=== PATIENT | female | born 1985 | race African-American/Black ===

== ENCOUNTER 2018-03-16 15:16 | Emergency (ER) | payer OTHER ==
--- NOTE | 2018-03-16 19:58 | ER Document Report ---
ED Medical Screen (RME) - General Chief Complaint: Chest Pain Stated Complaint: CHEST DISCOMFORT, ARM/LEG NUMBNESS Time Seen by Provider: 03/16/18 19:50 Notes: 32-year-old female with a complaint of a discomfort in her chest in the center, intermittently since yesterday. States she is getting over an upper respiratory infection, just had a chest x-ray which was negative, was prescribed blood pressure medication and an antibiotic yesterday at primary care, has not started either yet. Just stop smoking. Denies any current symptoms including any current pain. States that she felt "weird on one side of the body" earlier today, denies focal numbness or weakness. Denies shortness of breath, nausea/vomiting, fever. Denies recreational drugs. TRAVEL OUTSIDE OF THE [place] IN LAST 30 DAYS: No - Related Data Allergies/Adverse Reactions: No Known Allergies Allergy (Verified 03/16/18 19:54) Past Medical History Renal/ Medical History: Denies: Hx Peritoneal Dialysis Physical Exam - Vital signs Vitals: Temp Pulse Resp BP Pulse Ox 99.1 F 94 14 147/83 H 100 03/16/18 16:14 03/16/18 16:14 03/16/18 16:14 03/16/18 16:14 03/16/18 16:14 - Respiratory Respiratory status: No respiratory distress Breath sounds: Normal. No: Decreased air movement - Cardiovascular Rhythm: Regular. No: Tachycardia Heart sounds: Normal auscultation, S1 appreciated, S2 appreciated Course - Re-evaluation Re-evalutation: Patient with no current symptoms, already prescribed blood pressure medication and antibiotic by primary care. Well-appearing, unremarkable physical examination. Discussed options, after discussion of options decision was made to proceed with general laboratory workup including troponin to evaluate her symptoms. - Vital Signs Vital signs: Temp Pulse Resp BP Pulse Ox 99.1 F 94 14 147/83 H 100 03/16/18 16:14 03/16/18 16:14 03/16/18 16:14 03/16/18 16:14 03/16/18 16:14
[2018-03-16 21:27] LABS: ABSOLUTE BASOPHILS # (AUTO) 0.1 10^3/uL (0.0-0.2); ABSOLUTE LYMPHOCYTES (AUTO) 2.1 10^3/uL (0.5-4.7); ABSOLUTE MONOCYTES (AUTO) 0.6 10^3/uL (0.1-1.4); ABSOLUTE NEUT (AUTO) 4.5 10^3/uL (1.7-8.2); EOSINOPHILS % (AUTO) 0.5 % (0-6); HEMATOCRIT 37.9 % (36.0-47.0); HEMOGLOBIN 12.3 g/dL (12.0-15.5); LYMPHOCYTES % (AUTO) 28.9 % (13-45); MEAN CORPUSCULAR HEMOGLOBIN 22.9 pg (27.0-33.4); MEAN CORPUSCULAR HGB CONC 32.4 g/dL (32.0-36.0); MEAN CORPUSCULAR VOLUME 71 fl (80-97); MONOCYTES % (AUTO) 8.3 % (3-13); PLATELET COUNT 360 10^3/uL (150-450); RED BLOOD COUNT 5.36 10^6/uL (3.72-5.28); SEGMENTED NEUTROPHILS % (AUTO) 61.3 % (42-78); TOTAL CELLS COUNTED % (AUTO) 100 %; WHITE BLOOD COUNT 7.3 10^3/uL (4.0-10.5)
[2018-03-16 21:59] LABS: ANION GAP 14 (5-19); BLOOD UREA NITROGEN 10 mg/dL (7-20); CALCIUM 10.3 mg/dL (8.4-10.2); CARBON DIOXIDE 24 mmol/L (22-30); CHLORIDE 102 mmol/L (98-107); GLUCOSE 78 mg/dL (75-110); POTASSIUM 4.4 mmol/L (3.6-5.0); SODIUM 140.2 mmol/L (137-145)
--- NOTE | 2018-03-17 01:07 | ER Document Report ---
ED General - General Chief Complaint: Chest Pain Stated Complaint: CHEST DISCOMFORT, ARM/LEG NUMBNESS Time Seen by Provider: 03/16/18 19:50 Primary Care Provider: JACQUELINE HUMPHREY JR, MD [Primary Care Provider] - Follow up as needed Notes: 32-year-old female with past medical history of hypertension presents with a complaint of a discomfort in her chest in the center, intermittently since yesterday. Discomfort in the chest was described as an aching, cramping sensation. Nothing was noted to improve or worsen the pain which she currently denies. States she is getting over an upper respiratory infection, just had a c hest x-ray which was negative, was prescribed blood pressure medication and an antibiotic yesterday at primary care, has not started either yet. Denies any current symptoms including any current pain. States that she felt "weird on one side of the body" earlier today, denies focal numbness or weakness. Describes her symptoms as more being a paresthesia in her forearm and hand on the left side. Nothing seems to improve or worsen the symptoms. Denies a history of similar symptoms in the past. That paresthesia does come and go. Denies shortness of breath, nausea/vomiting, fever. Denies recreational drugs. TRAVEL OUTSIDE OF THE [place] IN LAST 30 DAYS: No - Related Data Allergies/Adverse Reactions: No Known Allergies Allergy (Verified 03/16/18 19:54) Past Medical History - General Information source: Patient - Social History Smoking Status: Former Smoker Frequency of alcohol use: None Drug Abuse: None Lives with: Family Family History: Reviewed & Not Pertinent Patient has suicidal ideation: No Patient has homicidal ideation: No Renal/ Medical History: Denies: Hx Peritoneal Dialysis Review of Systems - Review of Systems Notes: Constitutional: Negative for fever. HENT: Negative for sore throat. Eyes: Negative for visual changes. Cardiovascular: Positive for chest pain. Respiratory: Negative for shortness of breath. Gastrointestinal: Negative for abdominal pain, vomiting or diarrhea. Genitourinary: Negative for dysuria. Musculoskeletal: Negative for back pain. Skin: Negative for rash. Neurological: Negative for headaches, positive for left upper and lower extremity paresthesias 10 point ROS negative except as marked above and in HPI. Physical Exam - Vital signs Vitals: Temp Pulse Resp BP Pulse Ox 99.1 F 94 14 147/83 H 100 03/16/18 16:14 03/16/18 16:14 03/16/18 16:14 03/16/18 16:14 03/16/18 16:14 Interpretation: Hypertensive Notes: PHYSICAL EXAMINATION: GENERAL: Well-appearing, well-nourished and in no acute distress. HEAD: Atraumatic, normocephalic. EYES: Pupils equal round and reactive to light, extraocular movements intact, sclera anicteric, conjunctiva are normal. ENT: nares patent, oropharynx clear without exudates. Moist mucous membranes. NECK: Normal range of motion, supple without lymphadenopathy LUNGS: Breath sounds clear to auscultation bilaterally and equal. No wheezes rales or rhonchi. HEART: Regular rate and rhythm without murmurs ABDOMEN: Soft, nontender, normoactive bowel sounds. No guarding, no rebound. No masses appreciated. EXTREMITIES: Normal range of motion, no pitting or edema. No cyanosis. NEUROLOGICAL: Face symmetric. Tongue protrudes midline. Extraocular motions intact. Pupils are 2 mm and equally reactive. Normal speech, normal gait. 5 out of 5 strength in both the distal and proximal upper and lower extremities bilaterally. Sensation is grossly intact throughout. Finger to nose testing normal. Pronator drift normal. PSYCH: Normal mood, normal affect. SKIN: Warm, Dry, normal turgor, no rashes or lesions noted. Course - Re-evaluation Re-evalutation: 03/17/18 01:08 Patient presents with multiple vague complaints that did not appear to be concerning for any acute life-threatening pathology. Vitals are within normal limits at triage and at time of discharge. Physical examination is unremarkable. Patient has tolerated oral intake without difficulty. Patient was not noted to be in distress at any point during their ER visit. At this time, based on the reassuring evaluation, I do not suspect an acute SD, pulmonary embolus, aortic dissection, acute intra-abdominal pathology, stroke, or sepsis. In regards to the patient's paresthesias: Exact etiology uncertain. She has no focal neurologic deficits on a complete neurologic exam. Will discharge with return precautions and follow-up recommendations. Verbal discharge instructions given a the bedside and opportunity for questions given. Medication warnings reviewed. Patient is in agreement with this plan and has verbalized understanding of return precautions and the need for primary care follow-up in the next 24-72 hours. - Vital Signs Vital signs: Temp Pulse Resp BP Pulse Ox 98.7 F 74 14 152/82 H 100 03/17/18 02:33 03/17/18 02:33 03/17/18 02:33 03/17/18 02:33 03/17/18 02:33 - Laboratory Result Diagrams: 03/16/18 20:40 03/16/18 20:40 Laboratory results interpreted by me: 03/16/18 03/16/18 20:40 20:40 RBC 5.36 H MCV 71 L MCH 22.9 L Calcium 10.3 H - EKG Interpretation by Me Additional EKG results interpreted by me: 03/17/18 04:11 Sinus rhythm, rate 97. No ST elevations or depressions. QTC is 468. Discharge - Discharge Clinical Impression: Paresthesias, Chest discomfort, Essential hypertension Condition: Good Disposition: HOME, SELF-CARE Additional Instructions: Your blood work is reassuring today. There is no evidence of you having had a heart attack or stroke. Please return if you develop weakness, loss of sensation, worsening of your pain, pass out, began having shortness of breath, fever greater than 100.4 F, or any other symptoms that are worrisome to you. Referrals: JACQUELINE HUMPHREY JR, MD [Primary Care Provider] - Follow up as needed
[2018-03-17 02:36] VITALS: BP 152/82
--- NOTE | 2018-03-17 20:18 | EKG REPORT ---
SEVERITY:- BORDERLINE ECG - SINUS RHYTHM BORDERLINE T ABNORMALITIES, INFERIOR LEADS : Confirmed by: Juanita Wolfe 17-Mar-2018 20:17:06
== END 2018-03-17 02:33 | disposition home or self-care (01) ==
LOC: ER 15:16
DX: R07.9 Chest pain, unspecified (principal); R20.2 Paresthesia of skin; I10 Essential (primary) hypertension; Z87.891 Personal history of nicotine dependence
CPT/HCPCS: 36415; 80048; 84484; 84703; 85025; 93005; 93010; 99283